=== PATIENT | male | born 1990 | race African-American/Black ===

== ENCOUNTER 2017-10-09 09:06 | Emergency (ER) | payer SELFPAY ==
[~2017-10-09] VITALS: Ht 180.3 cm; Wt 90.7 kg
[2017-10-09 09:20] VITALS: BP 143/82
[2017-10-09 09:44] LABS: NEGATIVE OBC STREP NEG; POSITIVE OBC STREP POS
[2017-10-09] MEDS ORDERED: PRED50TA PO (09:52)
[2017-10-09] MEDS ORDERED: AMOX875T PO (09:52)
--- NOTE | 2017-10-09 09:53 | PHYS DOC ---
Past Medical History Past Medical History: Other Additional Past Medical Histor: strep throat Past Surgical History: No Surgical History Alcohol Use: Occasionally Drug Use: None Adult General Chief Complaint Chief Complaint: SORE THROAT HPI HPI Patient is a 27 year old male who presents with sore throat for 3 days. Patient denies any fever. Review of Systems Review of Systems Constitutional: See history of present illness Eyes: Denies change in visual acuity, redness, or eye pain [] HENT: Reports sore throat. Denies nasal congestion Respiratory: Denies cough or shortness of breath [] Cardiovascular: No additional information not addressed in HPI [] GI: Denies abdominal pain, nausea, vomiting, bloody stools or diarrhea [] : Denies dysuria or hematuria [] Musculoskeletal: Denies back pain or joint pain [] Integument: Denies rash or skin lesions [] Neurologic: Denies headache, focal weakness or sensory changes [] All other systems were reviewed and found to be within normal limits, except as documented in this note. Allergies Allergies Allergies Coded Allergies Type Severity Reaction Last Updated Verified No Known Drug Allergies 09/02/15 No Physical Exam Physical Exam Constitutional: Well developed, well nourished, no acute distress, non-toxic appearance. [] HENT: Normocephalic, atraumatic, bilateral external ears normal, oropharynx moist, no oral exudates, nose normal. [] +3 tonsils with mild erythema and exudate bilaterally. Midline uvula. +3 anterior cervical adenopathy. Eyes: PERRLA, EOMI, conjunctiva normal, no discharge. [] Neck: Normal range of motion, no tenderness, supple, no stridor. [] Cardiovascular:Heart rate regular rhythm, no murmur [] Lungs & Thorax: Bilateral breath sounds clear to auscultation [] Abdomen: Bowel sounds normal, soft, no tenderness, no masses, no pulsatile masses. [] Skin: Warm, dry, no erythema, no rash. [] Back: No tenderness, no CVA tenderness. [] Extremities: No tenderness, no cyanosis, no clubbing, ROM intact, no edema. [] Neurologic: Alert and oriented X 3, normal motor function, normal sensory function, no focal deficits noted. [] Psychologic: Affect normal, judgement normal, mood normal. [] Current Patient Data Vital Signs Vital Signs Date Time Temp Pulse Resp B/P (MAP) Pulse Ox O2 Delivery O2 Flow Rate FiO2 10/09/17 09:20 98.1 73 16 98 Room Air 98.1 Lab Values Laboratory Tests Test 10/09/17 09:17 Group A Streptococcus Rapid Positive (NEGATIVE) EKG EKG [] Radiology/Procedures Radiology/Procedures [] Course & Med Decision Making Course & Med Decision Making Pertinent Labs and Imaging studies reviewed. (See chart for details) Patient is in the ED with sore throat for 3 days, was active rapid strep. Will be discharged with amoxicillin. Tylenol Motrin for pain or fever. Saltwater gargles recommended. Follow-up with primary care doctor in one week. He was also discharged with prednisone. Instructed to return to the ED at any point symptoms worsen. Dragon Disclaimer Dragon Disclaimer This electronic medical record was generated, in whole or in part, using a voice recognition dictation system. Departure Departure Impression: Primary Impression: Acute streptococcal pharyngitis Disposition: HOME, SELF-CARE Condition: STABLE Referrals: NO PCP (PCP) Follow-up with your own doctor in 1-2 weeks Patient Instructions: Strep Infections Additional Instructions: You were seen for acute streptococcal pharyngitis infection. Ensure you complete your antibiotics. Take Tylenol/Motrin for pain or fever. Use saltwater gargles as needed for sore throat. Follow-up with your own doctor in the next 1- 2 weeks. Come back to the emergency room at any point symptoms worsen especially if you are unable to tolerate your own secretions. Scripts Prednisone (PREDNISONE) 50 Mg Tablet 1 TAB PO DAILY, #5 TAB Prov: BLESSING CUNNINGHAM APRN 10/09/17 Amoxicillin (AMOXICILLIN) 875 Mg Tablet 1 TAB PO BID, #20 TAB Prov: BLESSING CUNNINGHAM APRN 10/09/17 BLESSING CUNNINGHAM APRN Oct 09, 2017 09:53
== END 2017-10-09 10:08 | disposition home or self-care (01) ==
LOC: ER 09:06
DX: J02.0 Streptococcal pharyngitis (principal)
CPT/HCPCS: 87880; 99283